=== PATIENT | male | born 1950 | race Caucasian/White ===

== ENCOUNTER 2024-02-19 07:06 | Day surgery (SDC) | payer MEDICARE, SELFPAY ==
--- NOTE | 2024-02-18 11:45 | P.CONAN_ITS ---
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 Nephrolithiasis Diverticulosis Hx of hyperlipidemia HTN (hypertension) Surgical History Surgical History Hx of appendectomy History of colostomy reversal H/O eye surgery Hx of colonoscopy History of bowel resection Social History Social History Patient Tobacco Use Status: Former Tobacco user Are you DNR?: No Advance Directives: No Advance Directives Information Provided: Yes Recently lost weight without trying: No Nutrition Risks: No Nutritional Risk Meds Allergies Allergy/AdvReac Type Severity Reaction Status Date / Time aspirin Allergy Intermediate Stomach Verified 02/19/24 07:28 Upset ibuprofen Allergy Mild Stomach Verified 02/19/24 07:28 Upset NSAIDS (Non-Steroidal Allergy Mild Stomach Verified 02/19/24 07:28 Anti-Inflamma Upset Home Medications ?Medication ?Instructions ?Recorded ?Confirmed ?Last Taken ?Type atorvastatin 80 mg tablet 80 mg PO DAILY 02/18/24 02/18/24 Unknown History atorvastatin 80 mg tablet 80 mg PO DAILY 02/18/24 02/18/24 Unknown History benzonatate 100 mg capsule 200 mg PO TID PRN cough 02/18/24 02/18/24 Unknown History desmopressin 0.1 mg tablet 0.1 mg PO DAILY 02/18/24 02/18/24 Unknown History fluoride (sodium) 1.1 % dental gel PO 02/18/24 Unknown History (DentaGel) losartan 25 mg tablet 25 mg PO DAILY 02/18/24 02/18/24 Unknown History metoprolol succinate 25 mg 25 mg PO DAILY 02/18/24 02/18/24 Unknown History tablet,extended release 24 hr naproxen 500 mg tablet 500 mg PO BID 02/18/24 02/18/24 Unknown History tamsulosin 0.4 mg capsule 0.4 mg PO DAILY 02/18/24 Unknown History Assessment and Plan Assessment Anesthesia Assessment: Chart Reviewed Documented by User: Rebekah Phan MD 02/19/24 08:54 PMFSH Past Medical History Medical History Hx of right bundle branch block Left leg pain 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 Nephrolithiasis Diverticulosis Hx of hyperlipidemia HTN (hypertension) Surgical History Surgical History Hx of appendectomy History of colostomy reversal H/O eye surgery Hx of colonoscopy History of bowel resection History of Problems with Anesthesia: No Social History Social History Patient Tobacco Use Status: Former Tobacco user Are you DNR?: No Advance Directives: No Advance Directives Information Provided: Yes Recently lost weight without trying: No Nutrition Risks: No Nutritional Risk Meds Allergies Allergy/AdvReac Type Severity Reaction Status Date / Time aspirin Allergy Intermediate Stomach Verified 02/19/24 07:28 Upset ibuprofen Allergy Mild Stomach Verified 02/19/24 07:28 Upset NSAIDS (Non-Steroidal Allergy Mild Stomach Verified 02/19/24 07:28 Anti-Inflamma Upset Home Medications ?Medication ?Instructions ?Recorded ?Confirmed ?Last Taken ?Type atorvastatin 80 mg tablet 80 mg PO DAILY 02/18/24 02/18/24 Unknown History atorvastatin 80 mg tablet 80 mg PO DAILY 02/18/24 02/18/24 Unknown History benzonatate 100 mg capsule 200 mg PO TID PRN cough 02/18/24 02/18/24 Unknown History desmopressin 0.1 mg tablet 0.1 mg PO DAILY 02/18/24 02/18/24 Unknown History fluoride (sodium) 1.1 % dental gel PO 02/18/24 Unknown History (DentaGel) losartan 25 mg tablet 25 mg PO DAILY 02/18/24 02/18/24 Unknown History metoprolol succinate 25 mg 25 mg PO DAILY 02/18/24 02/18/24 Unknown History tablet,extended release 24 hr naproxen 500 mg tablet 500 mg PO BID 02/18/24 02/18/24 Unknown History tamsulosin 0.4 mg capsule 0.4 mg PO DAILY 02/18/24 Unknown History Exam Airway Mallampati Class: III TM Dist: >3cm Neck ROM: Full Partial: Upper Loose/Missing/Broken Teeth: Yes and Upper Heart: RRR Lungs: CTA Assessment and Plan Assessment Anesthesia Assessment: Anesthesia Plan Discussed Final Anesthetic Review History of Problems with Anesthesia: No NPO: Yes ASA Class: III Final Preanesthetic Review: Meds/Allgs Chart Reviewed, Consent Obtained/Reviewed and Anes Risks/Benef Reviewed Patient Risk: Intermediate Procedure Risk: Low Anesthetic Plan Anesthetic Plan: MAC: Disposition: Standard PACU
[2024-02-19 07:14] VITALS: BP 158/92; PULSE 18; RESP 69; TEMP 36.4; O2SAT 98; BMI 31.1
--- NOTE | 2024-02-19 07:37 | ECG_ITS ---
Test Reason : ? bbb Blood Pressure : / mmHG Vent. Rate : 062 BPM Atrial Rate : 062 BPM P-R Int : 178 ms QRS Dur : 158 ms QT Int : 434 ms P-R-T Axes : 029 014 -09 degrees QTc Int : 440 ms Normal sinus rhythm Right bundle branch block Cannot rule out Inferior infarct , age undetermined Abnormal ECG No previous ECGs available Referred By: Rebekah Phan Electronically Signed By:QAMAR ADAM MD
--- NOTE | 2024-02-19 07:38 | PC.NURSE ---
EKG ORDERED FOR ?BBB
--- NOTE | 2024-02-19 07:51 | PC.NURSE ---
ANESTHESIA AWARE OF EKG RESULTS DR JACOBSON AT BEDSIDE PAPER PROCESSING MACHINE HELPER WILL BE CONSULTED
[2024-02-19 08:25] VITALS: BP 188/113; PULSE 102; RESP 20; TEMP 36.1; O2SAT 99
--- NOTE | 2024-02-19 08:27 | PC.NURSE ---
OKAY TO PROCEED PER HUGO
--- NOTE | 2024-02-19 08:28 | PC.NURSE ---
LABETOLOL 10MG IV FOR HIGH B/P
--- NOTE | 2024-02-19 08:33 | P.HPSUR_ITS ---
Pre-Procedural Eval Section A - 24 Hr Update-Section A only Date of Service: 02/19/24 Section B - Complete if H&P > 30 days Chief Complaint: screening Details of Present Illness: see H&P no changes Relevant Family History (Specify if Yes): No Relevant Social History: None Present Medications: see Short Stay Collaborative assessment Medical History: No relevant PMH History of Previous Operations: No relevant previous surgery Allergies: Allergies Allergy/AdvReac Type Severity Reaction Status Date / Time aspirin Allergy Intermediate Stomach Verified 02/19/24 07:28 Upset ibuprofen Allergy Mild Stomach Verified 02/19/24 07:28 Upset NSAIDS (Non-Steroidal Allergy Mild Stomach Verified 02/19/24 07:28 Anti-Inflamma Upset Review of Systems Sugical H&P ROS: Negative: Constitution, Cardiovascular, Respiratory, Neurol ogical, Psychiatric, Hem-Onc, Allergic/Immunologic, Gastrointestinal, Genitourinary, Musculoskeletal, Integumentary, Endocrine and Eyes/Ears/Nose/Throat Exam Surgical H&P Exam: Normal: HEENT, Normal: Heart, Normal: Lungs, Normal: Extremities, Normal: Abdomen, Normal: Skin and Normal: Neurological Plan Diagnosis/Plan: Unchanged I have reviewed the history and physical and performed a pertinent physical examination on my patient. No changes have occurred unless specified. Time Spent With Patient Time: Total time managing care of this patient today ____ minutes.
[2024-02-19 09:01] VITALS: BP 109/44; PULSE 61; RESP 18; TEMP 35.9; O2SAT 100
[2024-02-19 09:16] VITALS: BP 150/71; PULSE 65; RESP 18; O2SAT 99
[2024-02-19 09:29] VITALS: BP 136/61; PULSE 56; RESP 18; TEMP 36.1; O2SAT 100
--- NOTE | 2024-02-19 09:53 | OP_ITS ---
DATE OF SERVICE: 02/19/2024 SURGEON: Yuriy Cooney MD INDICATIONS: Colon cancer screening. PREOPERATIVE DIAGNOSIS: POSTOPERATIVE DIAGNOSIS: PROCEDURE PERFORMED: Colonoscopy to the terminal ileum with snare polypectomy. ESTIMATED BLOOD LOSS: COMPLICATIONS: ANESTHESIA: Monitored anesthesia care. ASSISTANTS: SPECIMENS: DESCRIPTION OF PROCEDURE: A history and physical was performed. The risks and benefits of the procedure were explained to the patient and informed consent was obtained. The patient was placed in the left lateral decubitus position. A digital rectal exam was performed and was found to be normal. The Olympus pediatric video colonoscope was introduced into the rectum and advanced to the cecum. The cecum was identified by transillumination, palpation, and identification of ileocecal valve. Examination was performed and the scope was removed. He tolerated the procedure well and was returned to recovery area in stable condition. FINDINGS: The terminal ileum was examined and appeared normal. The visualized colonic mucosa was normal. The quality of the prep was good. There was some liquid stool in the sigmoid, which limited the sensitivity examination for detection of small polyps. This was washed and suctioned as best possible. A single polyp at 75 cm was removed with a snare. This measured approximately 7 mm. No other polyps were identified. There was moderate sigmoid diverticulosis. Retroflexed examination showed small internal hemorrhoids. IMPRESSION: Colon polyp. RECOMMENDATION: Follow up the biopsy results. MD DEON Bush/TIMOTHY / [id number]
== END 2024-02-19 09:55 | disposition home or self-care (01) ==
PROVIDERS: PCP Internal Medicine; Visit Provider Internal Medicine Gastroenterology
PROC: 0DJD8ZZ Inspection of Lower Intestinal Tract, Via Natural or Artificial Opening Endoscopic (ICD-10-PCS; CPT 45378; principal; 2024-02-19 08:20)
DX: Z12.11 Encounter for screening for malignant neoplasm of colon (principal); Z86.010 Personal history of colon polyps; Z83.719 Family history of colon polyps, unspecified; Z80.0 Family history of malignant neoplasm of digestive organs; D12.4 Benign neoplasm of descending colon; K57.30 Diverticulosis of large intestine without perforation or abscess without bleeding; K64.8 Other hemorrhoids; I10 Essential (primary) hypertension; I73.9 Peripheral vascular disease, unspecified; I83.10 Varicose veins of unspecified lower extremity with inflammation; Z79.1 Long term (current) use of non-steroidal anti-inflammatories (NSAID); Z79.899 Other long term (current) drug therapy; Z88.6 Allergy status to analgesic agent; Z98.890 Other specified postprocedural states; Z87.891 Personal history of nicotine dependence
CPT/HCPCS: 45385; 88305; 93005; J2704

== ENCOUNTER → 2024-02-19 07:37 | Outpatient (BNV) | payer MEDICARE, SELFPAY | PROVIDERS: PCP Internal Medicine; Visit Provider Internal Medicine Cardiovascular Disease | DX: I45.10 Unspecified right bundle-branch block (principal); R94.31 Abnormal electrocardiogram [ECG] [EKG] | CPT/HCPCS: 93010 ==